=== PATIENT | male | born 1985 | race Caucasian/White ===

== ENCOUNTER 2019-10-01 17:12 | Emergency (ER) | payer OTHER ==
[2019-10-01] MEDS ORDERED: DIPHTH,PERTUSS(ACELL),TET 0.5 ML DISP.SYRIN IM ONE ×2 (17:15→17:16)
[2019-10-01] MEDS ORDERED: SILVER SULFADIAZINE 1% TOP CREAM 50 GM JAR TP ONE (17:16)
--- NOTE | 2019-10-01 17:20 | PDOC ---
History of Present Illness - General Chief Complaint: Burn Stated Complaint: BURN RIGHT FORE ARM Time Seen by Provider: 10/01/19 17:13 History Source: Patient Exam Limitations: No Limitations - History of Present Illness Initial Comments: 10/01/19 17:16 34 y/o male burned right forearm 20 minutes ago at work with hot oil. No fever or chills. Not up to date with Tetanus. Able to move arm, but now blistering and painful. Timing/Duration: reports: this afternoon Severity: Yes: mild Past History - Past Medical History Allergies/Adverse Reactions: Allergies Allergy/AdvReac Type Severity Reaction Status Date / Time oyster extract Allergy Verified 10/01/19 17:13 Home Medications: Ambulatory Orders Silver Sulfadiazine 1% Top Cr [Silvadene -] 1 applic TP TID 5 Days jar Review of Systems - Review of Systems Able to Perform ROS?: Yes Is the patient limited French proficient: No Constitutional: No: Chills, Fever Respiratory: No: Cough, Shortness of Breath Cardiac (ROS): No: Edema Integumentary: Yes: Rash. No: Bruising All Other Systems: Reviewed and Negative *Physical Exam - Physical Exam General Appearance: Yes: Nourished, Appropriately Dressed. No: Apparent Distress HEENT: positive: EOMI, SUSAN, Normal ENT Inspection, Normal Voice, Symmetrical Neck: positive: Trachea midline, Normal Thyroid, Supple. negative: Tender, Rigid Respiratory/Chest: positive: Lungs Clear, Normal Breath Sounds. negative: Chest Tender, Respiratory Distress Cardiovascular: positive: Regular Rhythm, Regular Rate, S1, S2. negative: Edema , JVD, Murmur Vascular Pulses: Femoral (R): 4+, Femoral (L): 4+, Carotid (R): 4+, Carotid (L) : 4+, Dorsalis-Pedis (R): 4+, Doralis-Pedis (L): 4+ Lymphatic: negative: Adenopathy, Tenderness, Other Musculoskeletal: positive: Normal Inspection. negative: CVA Tenderness Extremity: positive: Normal Capillary Refill, Normal Range of Motion, Tender ( no compartment syndrome), Swelling, Erythema. negative: Normal Inspection ( right forearm with 2nd degree burn, no all away around covering about 2%. Blisters forming) Integumentary: positive: Normal Color, Dry, Warm. negative: Hives, Rash, Swelling, Ecchymosis Neurologic: positive: acute care physical therapist II-XII NML intact, Fully Oriented, Alert, Normal Mood/ Affect, Normal Response, Motor Strength 12/04 ED Progress Note - Progress Note Progress Note: 10/01/19 17:19 Patient with 2nd degree burn to right forearm Will prescribe Silvadene cream If worsen return to ER Pt is in agreement with plan Discharge - Discharge Information Problems reviewed: Yes Clinical Impression/Diagnosis: Burn of forearm, right, second degree Qualifiers: Encounter type: initial encounter Qualified Code(s): T22.211A - Burn of second degree of right forearm, initial encounter Clinical Impression/Diagnosis: (Ruled Out): Burn, forearm, first degree Condition: Good Disposition: HOME - Admission No - Additional Discharge Information Prescriptions: Silver Sulfadiazine 1% Top Cr [Silvadene -] 1 applic TP TID 5 Days jar - Follow up/Referral - Patient Discharge Instructions Patient Printed Discharge Instructions: How to Take Care of a Burn Additional Instructions: Motrin, rest Silvadene to arae 3x/day as needed If worsen return to ER - Post Discharge Activity
[2019-10-01 17:42] VITALS: BP 129/84; PULSE 77; TEMP 98.3; BMI 30.7
[2019-10-02] MEDS ORDERED: SILVER SULFADIAZINE 1% TOP CREAM 50 GM JAR TP SCH (10:00)
== END 2019-10-01 17:58 | disposition home or self-care (01) ==
LOC: FER 17:12
PROC: 3E0234Z Introduction of Serum, Toxoid and Vaccine into Muscle, Percutaneous Approach (ICD-10-PCS; principal; 2019-10-01)
DX: T22.211A Burn of second degree of right forearm, initial encounter (principal); X10.1XXA Contact with hot food, initial encounter; Y93.89 Activity, other specified; Y92.89 Other specified places as the place of occurrence of the external cause; Y99.0 Civilian activity done for income or pay; Z91.018 Allergy to other foods
CPT/HCPCS: 90715; 99283-25

== ENCOUNTER 2019-10-05 13:07 | Emergency (ER) | payer OTHER ==
[2019-10-05 13:14] VITALS: BP 132/88; PULSE 74; TEMP 98.2; BMI 30.4
--- NOTE | 2019-10-05 13:48 | PDOC ---
*Physical Exam - Vital Signs Last Vital Signs Temp Pulse Resp BP Pulse Ox 98.2 F 74 16 132/88 100 10/05/19 13:08 10/05/19 13:08 10/05/19 13:08 10/05/19 13:08 10/05/19 13:08 - Physical Exam 10/05/19 13:35 Afebrile, vital signs stable GENERAL: The patient is awake, alert, and fully oriented, in no acute distress. HEAD: Normal with no signs of trauma. EYES: Pupils equal, round and reactive to light, extraocular movements intact, sclera anicteric, conjunctiva clear. EXTREMITIES: Normal range of motion, no edema. NEUROLOGICAL: Normal speech, normal gait. PSYCH: Normal mood, normal affect. SKIN: R forearm: healing 2nd degree burn to anterior proximal forearm, no joint involvement, non-circumferential. no forearm edema/cellulitis/purulence, FROM elbow/wrist/hand with full strength, nvi distally. Healing skin initiating on distal portion of wound, total about 2% bsa. Medical Decision Making - Medical Decision Making 10/05/19 13:48 Healthy 34-year-old male presents for wound check of healing right forearm oil burn wound, neurovascular intact without complicating findings of infection or musculoskeletal compromise. Healing wound, no complaints. Referral to burn center at [facility] or wound clinic at [facility] Continue bacitracin with dressing Activity as tolerated, understands return criteria Discharge - Discharge Information Problems reviewed: Yes Clinical Impression/Diagnosis: Burn of forearm, right, second degree Qualifiers: Encounter type: subsequent encounter Qualified Code(s): T22.211D - Burn of second degree of right forearm, subsequent encounter Condition: Stable Disposition: HOME - Additional Discharge Information Prescriptions: Silver Sulfadiazine 1% Top Cr [Silvadene -] 1 applic TP TID 5 Days #1 tube - Follow up/Referral Referrals: Honorio Monterroso DO [Staff Physician] - - Patient Discharge Instructions Patient Printed Discharge Instructions: DI for [facility] Additional Instructions: Activity as tolerated. Stay hydrated. Tylenol 1000 mg every 8 hours and/or ibuprofen 600 mg every 8 hours as needed for pain. Continue applying Silvadene or bacitracin to the wound twice daily, keep covered with dressing as instructed. You may return to work but should have the wound well covered. You should follow up with a care management specialist as soon as possible regarding today's emergency department visit. Consider calling Dr. Monterroso in the wound clinic at [facility], or consider calling the burn clinic at [facility] ([phone]). Return to the emergency department for any new or concerning symptoms, particularly intolerable pain, severe swelling or discoloration, bleeding or pus, fever/chills, numbness/hand weakness or stiffness. - Post Discharge Activity
== END 2019-10-05 14:03 | disposition home or self-care (01) ==
LOC: FER 13:07
DX: Z48.00 Encounter for change or removal of nonsurgical wound dressing (principal); Z91.018 Allergy to other foods
CPT/HCPCS: 99281-25

== ENCOUNTER 2021-10-06 10:33 | Emergency (ER) | payer SELFPAY ==
[2021-10-06 11:06] VITALS: BP 149/86; PULSE 72; TEMP 98.8; BMI 31.6
[2021-10-07 13:07] LABS: SARS-CoV-2 NAA Not Detected (Not Detected)
== END 2021-10-06 13:03 | disposition home or self-care (01) ==
LOC: JER 10:33
DX: J20.9 Acute bronchitis, unspecified (principal)
CPT/HCPCS: 71046-TC-FY; 87804; 87807; 99284-25; C9803; U0003; U0005

== ENCOUNTER 2024-05-06 22:09 | Emergency (ER) | payer SELFPAY ==
[2024-05-06 22:17] VITALS: BP 145/81; PULSE 68; RESP 20; TEMP 97.6; BMI 34.1
[2024-05-06] MEDS ORDERED: SULFAMETHOXAZOLE/TRIMETHOPRIM 800MG/160MG D.S. TABLET ONE (23:18)
[2024-05-06] MEDS ORDERED: CEPHALEXIN MONOHYDRATE 500 MG CAPSULE (UD) ONE (23:19)
[2024-05-06] MEDS: SULFAMETHOXAZOLE/TRIMETHOPRIM 800MG/160MG D.S. TABLET PO ONE (23:20)
[2024-05-06] MEDS: CEPHALEXIN MONOHYDRATE 500 MG CAPSULE (UD) PO ONE (23:20)
== END 2024-05-07 00:01 | disposition home or self-care (01) ==
LOC: JERFT 22:09
DX: L03.113 Cellulitis of right upper limb (principal)
CPT/HCPCS: 99283-25